=== PATIENT | male | born 1970 | race Caucasian/White ===

== ENCOUNTER 2025-01-29 13:42 | Outpatient (CLI) | payer MEDICAID, SELFPAY ==
--- NOTE | ~2025-01-29 | XR_ITS ---
EXAMINATION: XR barium swallow DATE: 01/29/2025 15:02 INDICATION: Dysphagia TECHNIQUE: The patient drank thick barium, gas-producing crystals, thin barium and a barium pill. Flu oroscopic spot radiographs of the hypopharynx and esophagus were obtained. A total of 1278 fluoroscop ic images were recorded. Fluoroscopy exposure time was 2.2 minutes. COMPARISON: 04/07/2015 FINDINGS: The pharynx is symmetric and without evidence of mass lesion or mucosal irregularity. As no fritz on the prior study the patient experienced difficulty with initiating swallowing reflex. The esop hagus is normal without mass or stricture. Esophageal motility is normal. The barium pill passed rapi dly through the esophagus into the stomach. There is no hiatal hernia. There was no gastroesophageal reflux with provocative maneuvers. IMPRESSION: 1. Persistent difficulty with initiating the swallowing reflex at the oral stage. Otherwise unremarka ble esophagram. Reviewed, dictated and finalized at location A. IMPRESSION: 1. Persistent difficulty with initiating the swallowing reflex at the oral stag e. Otherwise unremarkable esophagram.
--- OUTSIDE RECORDS SUMMARY | 2025-01-29 13:49 | XMS_ITS | CONTINUITY OF CARE DOCUMENT ---
Author Name jonelser, jonelser Address Unknown Organization [facility] Address [address] [facility] [address] [place] [address] Phone [phone] Care Team Providers Care Credit Correspondence Clerk Name Role Phone Vladimir Gutierrez MD Unavailable ALFREDO VIVEROS MD Unavailable ALFREDO VIVEROS MD Unavailable PROBLEMS Condition Status Date Provider Notes Shortness of breath active Vladimir Gutierrez MD Palpitations active Vladimir Gutierrez MD Chest pain active Vladimir Gutierrez MD Carcinoma in situ of prostate active Vladimir Gutierrez MD Anxiety disorder active Vladimir Gutierrez MD Other symptoms involving car diovascular system active Vladimir Gutierrez MD ENCOUNTERS Date Type Provider Location Encounter Diag nosis - In-person encounter Office Visit Vladimir Gutierrez MD [facility] Other symptoms involving cardiovascular systemShortness of breathAnxiety disorderCarcinoma in situ of prostatePalpitationsChest pain VITAL SIGNS Date Observation Value Provider respiratory rate E&M 20 /min Louise Horsey pulse rate 108 /min Louise Horsey oxygen saturation, oximetry 98 % Louisera Varnery blood pressure, diastolic 74 mm[Hg] Sa james Horsey blood pressure, systolic 120 mm[Hg] Rasheed Horsey Body Mass Index (Ratio) 26.14 kg/m2 Francoise ornelas Horsey height E&M 69 [in_i] Louise Laurent weight E&M 177 [lb_av] Louise Laurent ALLERGIES No Known Drug Allergies HISTORY OF MEDICATION USE No Known Medication SOCIAL HISTORY Date Observation Value Provider number of years as a smoker 30 a Vladimir Gutierrez MD social history E&M Patient vikram chan smokes every day. Smoking History: P atient currently smokes every day. P atient has been counseled to quit. Vladimir Gutierrez MD social history reviewed E&M revi ewed - no changes required Vladimir Gutierrez MD smoking/tobacco cess ation, patient education and counseling yes Vladimir Gutierrez MD smoking, date started 1984 Louise Varnerjacinto smoking history, tot al pack/day 1/ Louise Varnerjacinto cigarette use yes Louise Laurent smoking status current every day smoker U rhona Gutierrez MD FAMILY HISTORY Family Member Condition Father Family History of Nahomy ng Cancer: INSURANCE PROVIDERS Payer name Policy type / Coverage type Clifford red libertarian [employer] [facility] Medicaid 3 [id number] TREATMENT PLAN Date Name Complete Echo DLCO - 85649 FRC - 07253 FVC - 68468 HISTORY OF PROCEDURES Procedure Date Procedure Name Provider Procedure Notes S tatus FVC - 34653 Vladimir Gutierrez MD complete d FRC - 50097 Vladimir Gutierrez MD complete d DLCO - 84517 Vladimir Gutierrez MD complet ed EKG Vladimir Gutierrez MD completed
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
--- OUTSIDE RECORDS SUMMARY | 2025-01-29 13:49 | XMS_ITS | Patient Health Record ---
Author Organization [facility] Address [address] [place] [address] Care Team Providers Care Camp Advisor Name Role Phone Tarun Rodriguez Primary Care Provider Lianna Kilpatrick Unavailable Allergies No Known Allergies Results Component Value Reference Range Notes Hemoglobin A1c CLIA Waived Reviewed date:10/23/2024 10:45:25 AM Interpretation: Performing Lab: Notes/Report: Hemoglobin A1c 7.7 4.0 - 6.4 % TSH Rfx on Abnormal to Free T4 Reviewed date:12/14/2024 09:38:42 AM Interpretation: Performing Lab:[email or web address], [address] [facility], Phone - [phone], Director - [place] Notes/Report: TSH 1.150 0.450-4.500 uIU/mL CMP 14 Comprehensive Metabol ic Panel* Reviewed date:12/14/2024 09:38:28 AM Interpretation: Performing Lab:[email or web address], [address] [facility], Phone - [phone], [facility] Notes/Report: Glucose 106 70-99 mg/dL BUN 37 6-24 mg/dL Creatinine 1.72 0.76-1.27 mg/dL eGFR 46 >59 mL/min/1.73 BUN/Creatinine Ratio 22 9-20 Sodium 131 134-144 mmol/L Potassium 6.1 3.5-5.2 mmol/L Chloride 95 96-106 mmol/L Carbon Dioxide, Total 18 20-29 mmol/L Calcium 9.5 8.7-10.2 mg/dL Protein, Total 7.2 6.0-8.5 g/dL Albumin 4.1 3.8-4.9 g/dL Globulin, Total 3.1 1.5-4.5 g/dL Bilirubin, Total 0.8 0.0-1.2 mg/dL Alkaline Phosphatase 150 44-121 IU/L AST (SGOT) 50 0-40 IU/L ALT (SGPT) 65 0-44 IU/L Lipid Panel* Reviewed date:12/14/2024 09:38:14 AM Interpretation: Performing Lab:[facility] [address], Phone - [phone], Director - [facility] Notes/Report: Cholesterol, Total 127 100-199 mg/dL Triglycerides 283 0-149 mg/dL HDL Cholesterol 37 >39 mg/dL VLDL Cholesterol Ricky 44 5-40 mg/dL LDL Chol Calc (NIH) 46 0-99 mg/dL Hepatitis C Virus Antibody w /Rflx to Quantitative Real-time PCR ([id number]) Reviewed date:12/14/2024 09:37:59 AM Interpretation: Performing Lab:[facility] [address], Phone - [phone], Director - [facility] Notes/Report: HCV Ab Non Reactive Non Reactive Interpretation: Not infected with HCV unless early or acute infection is suspected (which may be delayed in an immunocompromised individual), or other evidence exists to indicate HCV infection. Hepatitis B Surface Antigen (HBsAg Screen) Reviewed date:12/14/2024 09:37:44 AM Interpretation: Performing Lab:[facility] [address], Phone - [phone], [facility] Notes/Report: HBsAg Screen Negative Negative CBC With Differential/Platel et* Reviewed date:12/14/2024 09:37:31 AM Interpretation: Performing Lab:[facility] [address] [place] [address], Phone - [phone], [facility] Notes/Report: WBC 9.5 3.4-10.8 x10E3/uL RBC 5.22 4.14-5.80 x10E6/uL Hemoglobin 16.3 13.0-17.7 g/dL Hematocrit 48.6 37.5-51.0 % MCV 93 79-97 fL MCH 31.2 26.6-33.0 pg MCHC 33.5 31.5-35.7 g/dL RDW 13.8 11.6-15.4 % Platelets 554 150-450 x10E3/uL Neutrophils 58 Not Estab. % Lymphs 32 Not Estab. % Monocytes 9 Not Estab. % Eos 0 Not Estab. % Basos 1 Not Estab. % Neutrophils (Absolute) 5.6 1.4-7.0 x10E3/uL Lymphs (Absolute) 3.1 0.7-3.1 x10E3/uL Monocytes(Absolute) 0.8 0.1-0.9 x10E3/uL Eos (Absolute) 0.0 0.0-0.4 x10E3/uL Baso (Absolute) 0.1 0.0-0.2 x10E3/uL Immature Granulocytes 0 Not Estab. % Immature Grans (Abs) 0.0 0.0-0.1 x10E3/uL HIV Screen *HIV 1, 2 Ab, p24 Ag ([id number]) Reviewed date:12/14/2024 09:37:18 AM Interpretation: Performing Lab:[facility], Phone - [phone], Director - [facility] Notes/Report: HIV Ab/p24 Ag Screen Non Reactive Non Reactive HIV-1/HIV-2 antibodies and HIV-1 p24 antigen were NOT detected. There is no laboratory evidence of HIV infection. HIV Negative Hemoglobin A1c CLIA Waived Reviewed date:12/13/2024 10:56:40 AM Interpretation: Performing Lab: Notes/Report: Hemoglobin A1c 6.7 4.0 - 6.4 % Lipid Panel* Reviewed date:02/20/2024 04:09:25 PM Interpretation: Performing Lab:[facility], Phone - [phone], [facility] - [facility] Notes/Report: Cholesterol, Total 150 100-199 mg/dL Triglycerides 105 0-149 mg/dL HDL Cholesterol 31 >39 mg/dL VLDL Cholesterol Ricky 20 5-40 mg/dL LDL Chol Calc (NIH) 99 0-99 mg/dL CMP 14 Comprehensive Metabol ic Panel* Reviewed date:02/20/2024 04:08:57 PM Interpretation: Performing Lab:[facility], Phone - [phone], [facility] Notes/Report: Glucose 123 70-99 mg/dL BUN 15 6-24 mg/dL Creatinine 1.37 0.76-1.27 mg/dL eGFR 61 >59 mL/min/1.73 BUN/Creatinine Ratio 11 9-20 Sodium 139 134-144 mmol/L Potassium 4.6 3.5-5.2 mmol/L Chloride 103 96-106 mmol/L Carbon Dioxide, Total 18 20-29 mmol/L Calcium 9.6 8.7-10.2 mg/dL Protein, Total 7.2 6.0-8.5 g/dL Albumin 4.4 3.8-4.9 g/dL Globulin, Total 2.8 1.5-4.5 g/dL A/G Ratio 1.6 Bilirubin, Total 0.3 0.0-1.2 mg/dL Alkaline Phosphatase 128 44-121 IU/L AST (SGOT) 33 0-40 IU/L ALT (SGPT) 40 0-44 IU/L Hemoglobin A1c* Reviewed date:02/20/2024 04:09:14 PM Interpretation: Performing Lab:[facility] [place], [address] [facility], Phone - [phone], Director [facility] Notes/Report: Hemoglobin A1c 6.7 4.8-5.6 % . Prediabetes: 5.7 - 6.4 Diabetes: >6.4 Glycemic control for adults with diabetes: <7.0 Renal Panel (10) Reviewed date:01/14/2025 09:29:25 AM Interpretation: Performing Lab:[facility] [place], [address] [facility], Phone - [phone], Director - [facility] Notes/Report: Glucose 126 70-99 mg/dL BUN 6 6-24 mg/dL Creatinine 1.20 0.76-1.27 mg/dL eGFR 71 >59 mL/min/1.73 BUN/Creatinine Ratio 5 9-20 Sodium 131 134-144 mmol/L Potassium 4.4 3.5-5.2 mmol/L Chloride 95 96-106 mmol/L Carbon Dioxide, Total 18 20-29 mmol/L Calcium 9.8 8.7-10.2 mg/dL Phosphorus 2.2 2.8-4.1 mg/dL Albumin 4.5 3.8-4.9 g/dL Please note The date and/or time of collection was not indicated on the requisition as required by state and federal law. The date of receipt of the specimen was used as the collection date if not supplied. Hemoglobin A1c CLIA Waived Reviewed date:06/05/2024 12:16:37 PM Interpretation: Performing Lab: Notes/Report: Hemoglobin A1c 6.9 4.0 - 6.4 % Reason For Referral Reason home sleep study wit h reflex to PSG, [place] score 14 Diagnosis 1 BARI (obstructive sle ep apnea) (G47.33) Referral Organization [facility] Referring Provider First Name Tarun Referring Provider Last Name Jennifer Referring Provider Speciality Internal edicine Referred Provider Specialty Sleep Medici ne General Notes DAVID Gloria Valeri e A 12/19/2024 10:46:48 AM > Referral to [facility] Sleep Disorder center. Letter to patient., DAVID Gloria Valerie A 12/19/2024 10:49:28 AM > PA Submitted Clinical Notes [facility] Sleep Disorder Center, [address] [place] [address], [place] [address], , Referral Priority Routine Reason EGD FOR DYSPHAGIA Diagnosis 1 Dysphagia (R13.10) Referral Organization [facility] Referring Provider First Name Tarun Referring Provider Last Name Jennifer Referring Provider [facility] Referred Provider Specialty Gastroentero logy General Notes Laine Gloria RN 01/24/2025 07:33:56 AM > Referral to Dr. Milton [place]. Letter to patient and notified by phone. Clinical Notes Dr. Milton, [address], [address] , [place] [address], , Referral Priority Urgent Reason MODIFIED BARIUM SWAL LOW, GLOBUS SENSATION Diagnosis 1 Dysphagia (R13.10) Referral Organization [facility] Referring Provider First Name Tarun Referring Provider Last Name Jennifer [facility] Referred Provider Specialty Speech and l anguage therapist General Notes Laine Gloria RN 01/24/2025 07:39:20 AM >Referral to [facility] Speech and Language Therapy. Letter to patient. Clinical Notes [facility] Speech Therapy, [address], [facility] [address], , Referral Priority Routine Medications Medication SIG (Take, Route, Frequency, Duration) Notes Start Date End Date Status Aspirin Low Dose 81 MG TAKE 1 TABLET BY MOUTH ONCE DAILY for 30 Active metFORMIN HCl 500 MG 1 tablet with a savannah l Orally Once a day Active GoodSense Nicotine 4 MG 1 piece chew for 30 minutes as needed for smoking cessation up to 16 pieces per day Mouth/Throat every hour 12/07/2024 Active busPIRone HCl 10 MG 1 tablet Orally Twic e a day for 14 days 12/13/2024 Active amLODIPine Besylate 10 MG 1 tablet Orall y Once a day Active diazePAM 2 MG 1 tablet as needed Orally Once a day for 14 days 01/23/2025 Active Atorvastatin Calcium 40 MG TAKE 1 TABLET BY MOUTH EVERY DAY for 30 days Active Metoprolol Succinate ER 25 MG 1 tablet Orally Once a day for 30 days Active Valsartan 320 MG 1 tablet Orally Once a day for 30 day(s) 01/23/2025 Active Fluticasone Propionate 50 MCG/ACT 2 SPRAYS DAILY EACH NOSTRIL Nasally at night for 30 days 01/23/2025 Active Albuterol Sulfate HFA 108 (90 Base) MCG/ACT 2 puffs Inhalation every 4 hrs for 30 days As needed shortness of breath 12/07/2024 Active Triamcinolone Acetonide 0.1 % 1 application Externally at night Active Umeclidinium-Vilanterol 62.5-25 MCG/ACT 1 puff Inhalation Once a day for 30 days 01/10/2025 Active Debrox 6.5 % 5 drops into affecte d ear Otic Twice a day Not-Taking metroNIDAZOLE 0.75 % 1 application Externally at night Active Social History Tobacco Use: Social History Observation Description Date Details (start date - stop date) Current Smoker NA - NA Sex Assigned At : Social History Observation Description Sex Assigned At Male Tobacco Control (Standard) Question Answer Notes Tobacco use: Current smoker Additional Findings: Tobacco user Moderate cigar ette smoker (10-19 cigs/day) Section Notes: Patient has reduced cigarett e smoking. Patient has reduced cigarett e smoking. Patient has reduced cigarett e smoking. Patient has reduced cigarett e smoking. Patient has reduced cigarett e smoking. Patient has reduced cigarett e smoking. Patient has reduced cigarett e smoking. Patient has reduced cigarett e smoking. Patient has reduced cigarett e smoking. Patient has reduced cigarett e smoking. Patient has reduced cigarett e smoking. Patient has reduced cigarett e smoking. Patient has reduced cigarett e smoking. Patient has reduced cigarett e smoking. Patient has reduced cigarett e smoking. Patient has reduced cigarett e smoking. Patient has reduced cigarett e smoking. Patient has reduced cigarett e smoking. Patient has reduced cigarett e smoking. Patient has reduced cigarett e smoking. Problems Problem Type SNOMED Code ICD Code Onset Dates Problem Status W/U Status Risk Notes Problem Tobacco user (039062622) Nicotine dependence, unspecified, uncomplicated (F17.200) Active confirmed Problem Generalized anxiety disorder (29057319) Generalized anxiety disorder (F41.1) Active confirmed Problem Hypertension (17874433) Hypertension (I10) 05/07/20 22 Active confirmed Problem Hyperlipidemia (38605626) Hyperlipidemia (E78.5) Active confirmed Problem COPD - Chronic obstructive pulmonary disease (92760116) COPD (chronic obstructive pulmonary disease) (J44.9) Active confirmed Problem Coronary artery disease (37442607) CAD (coronary artery disease) (I25.10) Active confirmed Problem Dysphagia (77118227) Dysphagia (R13.10) Active confirmed Problem Acute exacerbation of chronic obstructive airways disease (934272658) COPD exacerbation (J44.1) Active confirmed Problem Rosacea (014556843) Rosacea (L71.9) Active confirmed Problem Diabetes mellitus (22675732) Diabetes mellitus (E11.9) 06/07/20 23 Active confirmed Problem Tinnitus (68703425) Tinnitus (H93.19) Active confirmed Problem Obstructive sleep apnea syndrome (95875483) BARI (obstructive sleep apnea) (G47.33) Active confirmed Problem Liver enzymes abnormal (137667958) Abnormal liver enzymes (R74.8) 06/20/20 23 Active confirmed Problem Globus sensation (642345071) Globus sensation (F45.8) Active confirmed Problem Hypertensive crisis (984296814) Hypertensive crisis (I16.9) Active confirmed Problem Obesity (224230011) Obesity, unspecified classification, unspecified obesity type, unspecified whether serious comorbidity present (E66.9) Active confirmed Problem Pulmonary hypertension (01250479) Pulmonary hypertension (I27.20) Active confirmed Problem Chronic kidney disease stage 3A (631078848) Stage 3a chronic kidney disease (N18.31) Active confirmed Problem Peripheral arterial disease (077524592) Peripheral arterial disease (I73.9) Active confirmed Vital Signs Heart Rate 105 /min 01/23/2025 Respiratory Rate 16 /min 01/23/2025 Blood pressure diastolic 72 mm Hg 01/23/2025 Oximetry 94 % 01/23/2025 Height 68 in 01/23/2025 Blood pressure systolic 112 mm Hg 01/23/2025 Weight 207.8 lbs 01/23/2025 BMI 31.59 kg/m2 01/23/2025 Encounters Encounter Location Date Provider Diagnosis [address] [address] 01/10/2025 Tarun Rodriguez Hyperkalemia E87.5 and Stage 3a chronic kidney disease N18.[address] [address] 02/14/2024 Tarun Rodriguez Hypertension I10 ; Diabetes mellitus E11.9 ; Hyperlipidemia E78.5 ; Nicotine dependence, unspecified, uncomplicated F17.200 and Obesity, unspecified classification, unspecified obesity type, unspecified whether serious comorbidity present E66.[address] [address] 06/05/2024 Tarun Rodriguez Hypertension I10 ; Diabetes mellitus E11.9 ; Hyperlipidemia E78.5 ; Nicotine dependence, unspecified, uncomplicated F17.200 ; Stage 3a chronic kidney disease N18.31 and Exposure to potential infection Z20.[address] [address] 10/23/2024 Tarun Rodriguez Diabetes mellitus E11.9 ; Hypertension I10 ; Hyperlipidemia E78.5 and Exposure to potential infection Z20.9 [facility] [address] [place] [address] 12/07/2024 Tarun Rodriguez COPD exacerbation J44.1 and Hypertension I10 [address] [address] 12/13/2024 Tarun Rodriguez Diabetes mellitus E11.9 ; Screening for lung cancer Z12.2 ; Fatigue R53.83 ; Hypertension I10 ; Nicotine dependence, unspecified, uncomplicated F17.200 ; Generalized anxiety disorder F41.1 ; BARI (obstructive sleep apnea) G47.33 ; Hyperlipidemia E78.5 ; Stage 3a chronic kidney disease N18.31 ; LOPEZ (dyspnea on exertion) R06.00 and Exposure to potential infection Z20.9 [facility] [address] [address] 12/13/2024 Lianna Kilpatrick [address] [address] 12/13/2024 Tarun Rodriguez Fatigue R53.83 ; Exposure to potential infection Z20.9 ; Hyperlipidemia E78.5 and Hypertension I10 [address] [address] 01/10/2025 Tarun Rodriguez Hyperkalemia E87.5 ; Stage 3a chronic kidney disease N18.31 ; LOPEZ (dyspnea on exertion) R06.00 ; CAD (coronary artery disease) I25.10 ; Pulmonary hypertension I27.20 ; Nicotine dependence, unspecified, uncomplicated F17.200 ; Generalized anxiety disorder F41.1 ; Chest pain R07.9 and COPD (chronic obstructive pulmonary disease) J44.[address] [address] 01/23/2025 Tarun Rodriguez Globus sensation F45.8 ; Postnasal drip R09.82 ; COPD (chronic obstructive pulmonary disease) J44.9 ; Generalized anxiety disorder F41.1 ; Hyponatremia E87.1 ; Hypertension I10 ; CAD (coronary artery disease) I25.10 and Dysphagia R13.[address] [address] 01/23/2025 Lianna Kilpatrick [facility] [address], [place] [address] 05/31/2024 Tarun Rodriguez Hypertension I10 [address] [address] 12/06/2024 Tarun Rodriguez [address] [address] 12/14/2024 Tarun Rodriguez [address] [address] 01/11/2025 Tarun Rodriguez [address] [address] 01/17/2025 Tarun Rodriguez [address] [address] 01/23/2025 Tarun Rodriguez Generalized anxiety disorder F41.1 and COPD exacerbation J44.[address] [address] 01/17/2025 Tarun Rodriguez Assessments Encounter Date Diagnosis (ICD Code) Assessment Notes Treatment Notes Treatment Clinical Notes Section Notes 12/07/2024 COPD exacerbation (ICD-10 - J44.1) CARDIAC OR THROMBOEMBOLIC OR HEMATOLOGIC OR NEUROLOGIC OR PSYCHOLOGICAL ETIOLOGIES LESS LIKELY 01/23/2025 Globus sensation (ICD-10 - F45.8) LIKELY RELATED TO HIS ANXIETY 01/23/2025 Generalized anxiety disorder (ICD-10 - F41.1) 01/10/2025 Hyperkalemia (ICD-10 - E87.5) 01/10/2025 Stage 3a chronic kidney disease (ICD-10 - N18.31) 01/10/2025 Hyperkalemia (ICD-10 - E87.5) 01/23/2025 Postnasal drip (ICD-10 - R09.82) 12/13/2024 Diabetes mellitus (ICD-10 - E11.9) 12/07/2024 Hypertension (ICD-10 - I10) CONTROLLED 12/13/2024 Screening for lung cancer (ICD-10 - Z12.2) 12/13/2024 Fatigue (ICD-10 - R53.83) 02/14/2024 Hypertension (ICD-10 - I10) 02/14/2024 Diabetes mellitus (ICD-10 - E11.9) DISCUSSED INCREASING FISH IN DIET, USING WRAPS INSTEAD OF BREADS, INCREASING ACTIVITY INCLUDING BODY WEIGHT EXERCISES. 05/31/2024 Hypertension (ICD-10 - I10) 06/05/2024 Hypertension (ICD-10 - I10) 06/05/2024 Diabetes mellitus (ICD-10 - E11.9) 10/23/2024 Hypertension (ICD-10 - I10) 10/23/2024 Diabetes mellitus (ICD-10 - E11.9) 10/23/2024 Hyperlipidemia (ICD-10 - E78.5) 06/05/2024 Hyperlipidemia (ICD-10 - E78.5) 02/14/2024 Hyperlipidemia (ICD-10 - E78.5) 12/13/2024 Exposure to potential infection (ICD-10 - Z20.9) 12/13/2024 Fatigue (ICD-10 - R53.83) 01/10/2025 Stage 3a chronic kidney disease (ICD-10 - N18.31) 01/23/2025 COPD (chronic obstructive pulmonary disease) (ICD-10 - J44.9) 01/10/2025 LOPEZ (dyspnea on exertion) (ICD-10 - R06.00) 01/23/2025 COPD exacerbation (ICD-10 - J44.1) 01/10/2025 CAD (coronary artery disease) (ICD-10 - I25.10) 01/23/2025 Generalized anxiety disorder (ICD-10 - F41.1) 12/13/2024 Hyperlipidemia (ICD-10 - E78.5) 12/13/2024 Hypertension (ICD-10 - I10) 06/05/2024 Nicotine dependence, unspecified, uncomplicated (ICD-10 - F17.200) 10/23/2024 Exposure to potential infection (ICD-10 - Z20.9) 06/05/2024 Stage 3a chronic kidney disease (ICD-10 - N18.31) 02/14/2024 Nicotine dependence, unspecified, uncomplicated (ICD-10 - F17.200) 12/13/2024 Nicotine dependence, unspecified, uncomplicated (ICD-10 - F17.200) 12/13/2024 Hypertension (ICD-10 - I10) 01/10/2025 Pulmonary hypertension (ICD-10 - I27.20) 01/23/2025 Hyponatremia (ICD-10 - E87.1) stop hctz and check labs in one week. 01/23/2025 Hypertension (ICD-10 - I10) 01/10/2025 Nicotine dependence, unspecified, uncomplicated (ICD-10 - F17.200) 12/13/2024 Generalized anxiety disorder (ICD-10 - F41.1) 02/14/2024 Obesity, unspecified classification, unspecified obesity type, unspecified whether serious comorbidity present (ICD-10 - E66.9) 06/05/2024 Exposure to potential infection (ICD-10 - Z20.9) 12/13/2024 BARI (obstructive sleep apnea) (ICD-10 - G47.33) 01/10/2025 Generalized anxiety disorder (ICD-10 - F41.1) 01/23/2025 CAD (coronary artery disease) (ICD-10 - I25.10) STRESS TEST 01/2025 WITH TWO OLD AL (INF, ANT), NO ISCHEMIA, LVEF 68%. 01/23/2025 Dysphagia (ICD-10 - R13.10) 01/10/2025 Chest pain (ICD-10 - R07.9) 12/13/2024 Hyperlipidemia (ICD-10 - E78.5) 12/13/2024 Stage 3a chronic kidney disease (ICD-10 - N18.31) 01/10/2025 COPD (chronic obstructive pulmonary disease) (ICD-10 - J44.9) 12/13/2024 LOPEZ (dyspnea on exertion) (ICD-10 - R06.00) 12/13/2024 Exposure to potential infection (ICD-10 - Z20.9) 12/07/2024 Other Learning About the Safe Use of Antibiotics material was discussed. Pt was educated on use of antibiotic medication including dosing, side effects, adverse effects and anticipated response. Pt was also educated on importance of completing full course of treatment as ordered. Patient voiced understanding of all. 12/13/2024 Other Nail Setter met with Giovanni Zavala to assist in working on building skills to help the consumer gain confidence in their independent living skills. The securities underwriter practiced with Giovanni Zavala implementing problem solving skills including breathing exercised, medication compliance, and taking walks to help facilitate exploration of options decreasing stress. The securities underwriter encouraged and engaged in critical thinking of how to use natural resources and coping skills to help manage symptoms in the moment. Nail Setter also worked on modeling and practicing with the consumer healthy coping skills to reduce stress and anxiety. Plan Of Treatment Future Test Test Name Order Date Chest X-ray PA and lateral 12/07/2024 PFTS with DLCO 12/13/[address]: Lung Cancer Screening 12/13 Echo doppler exam 01/10/2025 Lexiscan Stress Nuclear Test 01/10/2025 Barium Swallow 01/23/2025 Next Appt Details Provider Name:Tarun Rodriguez , 01/30/2025 01:00:00 PM, [address], [place], [address], Insurance Providers Payer Name Payer Address Payer Phone Subscriber Number Group Number Insured Name Patient Relationship to Insured Coverage Start Date Coverage End Date MEDICAID [address] [place] [phone] [id number] Giovanni Zavala Self - patient is the insured 5 Medical (General) History Medical History History ICD Code Prostate Cancer Surgical History Surgery Date(Month/Year) Valve replacement 1970 [place] in left leg 2013 Prostate removed-cancer 2020 Hospitalization History Reason Date(Month/Year) See surgeries
== END 2025-01-29 13:43 | disposition home or self-care (01) ==
PROVIDERS: PCP Family Medicine; Visit Provider Internal Medicine
DX: R13.10 Dysphagia, unspecified (principal)
CPT/HCPCS: 74220

== ENCOUNTER 2025-03-11 12:18 | Emergency (ER) | payer OTHER, SELFPAY ==
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
--- NOTE | 2025-03-11 12:20 | PC.NURSE ---
To intake desk stating I can't swallow. Pt pink and talking in complete sentences. Pt advised that he will be assessed in triage. Pt ambulatory to seat in lobby.
--- OUTSIDE RECORDS SUMMARY | 2025-03-11 12:21 | XMS_ITS | Clinical Summary ---
Author Organization [facility] Address [address] [place] [address] Care Team Providers Care Leadership Coach Name Role Phone Amol Rich MD Primary Care Provider [phone] Source Comments [facility],non-owned Affiliates and Associated Physician Practices is amultiple site organization consisting of ambulatory clinics and hospital sitesin [place], [place], [place] and [place]. This disclosure is being madepursuant to the Care Everywhere program and may not contain all information available regarding this patient. 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
--- OUTSIDE RECORDS SUMMARY | 2025-03-11 12:21 | XMS_ITS ---
Author Organization [facility] Address [address] [place] [address] Care Team Providers Care Kerrick Kleaner Operator Name Role Phone Tarun Rodriguez Primary Care Provider REASON FOR VISIT Hosp FU/ Social History Sex Assigned At : Social History Observation Description Sex Assigned At Male Encounters Encounter Location Date Provider Diagnosis [address] [place] [address] 02/25/2025 Tarun Rodriguez Plan Of Treatment No Information Progress Notes * Neha ZAVALAOB:1970 (54 yo M)Acc No.[id number]:02/25/2025 UNLOCKED PROGRESS NOTE Progress Notes Patient: Giovanni QUINTERO Provider: Luis Rodriguez :1970 A ge:54 Y S ex:Male Date:02/25/2025 Address:[address] [place], [place] [id number] Subjective: * Chief Complaints: * 1 . Hosp FU/. * Medical History: Objective: * Vitals: Assessment: Plan: * Treatment: * * Electronic signature of Madhuri Rodriguez , [id number] on 03/11/2025 at 12:21 PM CDT Sign off status: Pending * Provider: Luis Rodriguez Date: 02/25/2025 Generated for Kimberly long/David/eTransmitting on: 0 03/11/2025 12:21 PM CDT
--- OUTSIDE RECORDS SUMMARY | 2025-03-11 12:21 | XMS_ITS | Referral Summary ---
Author Organization [facility] Address [address] [place] [address] Care Team Providers Care Geriatric Psychiatrist Name Role Phone Tarun Rodriguez MD Primary Care Provider [phone] Encounters Date Type Department Care Team Description 02/07/2025 11:15 AM CDT - 02/07/2025 11:59 PM CDT Hospital Encounter [facility] [address] [place] [id number] Rad, Amh Fluoro Dysphagia, unspecified type Discharge Disposition: Discharge to home or self care 02/07/2025 11:30 AM CDT Therapy [facility] Speech Therapy [address] [place] [id number] 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, 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 Dysphagia, unspecified type (Primary Dx) from Last 3 Months Allergies Active Allergy Reactions Criticality Noted Date Comments Iodinated Contrast Media Medications No known medications Active Problems No known active problems Social History Tobacco Use Types Packs/Day Years Used Date Smoking Tobacco: Never Assessed Sex and Gender Information Value Date Recorded Sex Assigned at Not on file 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 Gender Identity Not on file Sexual Orientation Not on file Last Filed Vital Signs Vital Sign Reading Time Taken Comments Blood Pressure 132/84 05/17/2015 8:13 AM CDT Pulse 73 05/17/2015 8:13 AM CDT Temperature - - Respiratory Rate - - Oxygen Saturation - - Inhaled Oxygen Concentration - - Weight 79.4 kg (175 lb) 05/16/2015 12:00 PM CDT Height 175.3 cm (5' 9.02) 05/16/2015 12:00 PM C DT Body Mass Index 25.83 05/16/2015 12:00 PM CDT Plan of Treatment Not on file Procedures Procedure Name Priority Date/Time Associated Diagnosis Comments FL MODIFIED BARIUM SWALLOW W VIDEO Schedule Routine, Read Routine (OP Routine) 02/07/2025 11:34 AM CDT Dysphagia, unspecified type from Last 3 Months Results * FL Modified Barium Swallow W Video (02/07/2025 11:34 AM CDT) Anatomical Region Laterality Modality Head and Neck N/A Radio Fluoroscop y 02/07/2025 12:4 7 PM CDT Narrative 02/07/2025 12:49 PM CDT EXAM DESCRIPTION: FL MODIFIED BARIUM SWALLOW EVALUATION WITH SPEECH THERAPIST REASON FOR STUDY: R13.10 Can't swallow 2-3 months--no throat/neck surgery Smoker 1.2 min ft 13.9 mgy RADIATION DOSE: Dose: 13.90 mGy Reference Air Kerma (Ka,r) TECHNIQUE: Fluoroscopic assistance provided to Speech Pathology Department who performed the exam. The patient was brought into the fluoro room and placed upright on a modified barium swallow chair. The patient was then given multiple consistencies mixed with barium to swallow under live fluoroscopic video guidance. COMPARISON: None. FINDINGS: No penetration or aspiration. IMPRESSION: No evidence of penetration or aspiration. Please correlate with Speech Pathology report. THIS IS AN ELECTRONICALLY VERIFIED FINAL REPORT 02/07/2025 12:49 PM - Electronically signed by Lenny Latham M.D. NS: NS Report ID: [id number] Reading Location: [id number] Procedure Note Lenny Latham MD - 02/07/2025 EXAM DESCRIPTION: FL MODIFIED BARIUM SWALLOW EVALUATION WITH SPEECH THERAPIST REASON FOR STUDY: R13.10 Can't swallow 2-3 months--no throat/neck surgery Smoker 1.2 min ft 13.9mgy RADIATION DOSE: Dose: 13.90 mGy Reference Air Kerma (Ka,r) TECHNIQUE: Fluoroscopic assistance provided to Speech Pathology Departmentwho performed the exam. The patient was brought into the fluoro room and placed upright on amodified barium swallow chair. The patient was then given multiple consistenciesmixed with barium to swallow under live fluoroscopic video guidance. COMPARISON: None. FINDINGS: No penetration or aspiration. IMPRESSION: No evidence of penetration or aspiration. Please correlate with Speech Pathology report. THIS IS AN ELECTRONICALLY VERIFIED FINAL REPORT 02/07/2025 12:49 PM - Electronically signed by Lenny Latham M.D. NS: NS Report ID: [id number] Reading Location: [place] [address] Tarun Rodriguez MD IMG FLUOROSCOPY PROCEDURES Fi nal Result from Last [address] [place] [address] Care Teams Geriatric Psychiatrist Relationship Specialty Start Date End Date Tarun Rodriguez MD [address] [facility] [place] [address] PCP - General Internal Medicine 01/30/25
--- OUTSIDE RECORDS SUMMARY | 2025-03-11 12:21 | XMS_ITS ---
Author Organization [facility] Address [address] [place] [address] Care Team Providers Care Mini Shifter Name Role Phone Tarun Rodriguez Primary Care Provider Social History Sex Assigned At : Social History Observation Description Sex Assigned At Male Encounters Encounter Location Date Provider Diagnosis [address] [place] [address] 02/26/2025 Tarun Rodriguez Plan Of Treatment No Information Progress Notes * Neha ZAVALAOB:1970 (54 yo M)Acc No.[id number]:02/26/2025 UNLOCKED PROGRESS NOTE Patient: Giovanni QUINTERO :1970 A ge:54 Y S ex:Male Address:[address] [place] [address], [phone] Subjective: * Chief Complaints: * * HPI: E R/Hospital Follow-up: ER/Hopsital/Urgent Care follow-up. Notification of ER/hospital visit from: pilar burch contacted client regarding outstanding imaging and he informed of hospitalization . If instructed by nurse/provider, did the pt go to ER/UC? E R/Urgent Care follow-through . Date of ER/urgent visit or hospitalization: . 02/24 to 02/26/25. Reason for the Visit: . difficulty breathing and swallowing?. Visit Type and Location: . , Inpatient Hospitalization [facility] . Disclosure signed to obtain records: . , Yes. Records Requested Date D ate, First Attempt: 0 02/26/2025 . D ate, Second Attempt: . D ate, Third Attempt: . Records Received: D ate Records Received . Medication Changes: . , No. Signficant labs, imaging or other results: . reports being seen by Speech Therapy . New diagnoses? . , No. Provider recommended f/u: 1 week client seeing ENT tomorrow planning visit with Dr Rodriguez for after this visit for Dr Rodriguez to have results of referral . ER/Hospital F/U appointment with [facility]: [facility] f/u appointment date: . Appointment Kept? D id the patient keep the appointment with [facility]? . Nurse completing documentation [place] [facility] . [facility] [facility] . * Medical History: * Surgical History: * Hospitalization/Major Diagno stic Procedure: * Medications: Objective: * Vitals: * Physical Examination: Assessment: Plan: * Treatment: * Procedure Codes: C HS01 ER/hospitalization continuity of care * * Date: History and Physical Notes * HPI (History of Present Illness) Category Sub-Category Detail Notes Category Not es ER/Hospital Follow-up Visit Type and Location: ., Inpatient Hospitalization [facility] Disclosure signed to obtain records: ., Yes Records Requested Date Date, First Attempt:: . Date, Second Attempt:: . Date, Third Attempt: : . Records Received: Date Records Received: . Medication Changes: ., No Signficant labs, imaging or other results: .reports being seen by Speech Therapy New diagnoses? ., No Provider recommended f/u: 1 week client seeing ENT tomorrow planning visit with Dr Rodriguez for after this visit for Dr Rodriguez to have results of referral ER/Hospital F/U appointment with [facility]: [facility] f/u appointment date:: . Notification of ER/hospital visit from: nurse contacted client regarding outstanding imaging and he informed of hospitalization Reason for the Visit: .difficulty breath ing and swallowing Date of ER/urgent visit or hospitalization: .02/24 to 02/26/25 Nurse completing documentation [place] [facility] Pilar dunn: . [place] [facility] Nurses: . If instructed by nurse/filomena cruz, did the pt go to ER/UC? ER/Urgent Care follow-through: . Appointment Kept? Did the patient keep the appointment with [facility]?: .
--- OUTSIDE RECORDS SUMMARY | 2025-03-11 12:22 | XMS_ITS | Clinical Summary ---
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 Dysphagia, unspecified type (Primary Dx) 02/07/2025 11:15 AM CDT - 02/07/2025 11:59 PM CDT Hospital Encounter [facility] Imaging Center [address] [place] [address] Rad, Amh Fluoro Dysphagia, unspecified type Discharge Disposition: Discharge to home or self care from Last 3 Months Social History Tobacco Use Types Packs/Day Years Used Date Smoking Tobacco: Never Assessed Sex and Gender Information Value Date Recorded Sex Assigned at Not on file 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 Gender Identity Not on file Sexual Orientation [...] 05/16/2015 12:00 PM CDT Plan of Treatment Health Maintenance Due Date Last Done Comments Colon Cancer Screening-Colonoscopy 1970 Depression Screening 1970 Hepatitis C Screening 1970 Prostate Cancer Screening-PSA 1970 Hepatitis B Screening 1986 Regular Well Visit/Exam 18-64 1986 Zoster Vaccine (1 of 2) 2018 DTaP/Tdap/Td Vaccine (2 - Td or Tdap) 03/31/2024 03/31/2014 Influenza Vaccine (#1) 2025 Pneumococcal vaccine <65 Aged Out No longer eligible based on patient's age to complete this topic Procedures Procedure Name Priority Date/Time Associated Diagnosis [...] Lenny Latham M.D. NS: NS Report ID: [id number] Reading Location: [id number] Procedure Note Lenny Latham MD - 02/07/2025 [...] Lenny Latham M.D. NS: NS Report ID: [id number] Reading Location: [place] [address] Tarun Rodriguez MD IMG FLUOROSCOPY PROCEDURES Fi nal Result from Last 3 Months Insurance Care Teams Cupola Man Relationship Specialty Start Date End Date Tarun Rodriguez MD [address] [facility] [place] [address] PCP - General Internal Medicine 01/30/25
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
--- NOTE | 2025-03-11 12:38 | PC.NURSE ---
Pt ambulatory to intake desk and asked for an ink pen. When nurse handed pt a pen he began striking himself in the neck with the pen. Pt repeatedly states I can't swallow. Pt is pink, talking and able to swallow saliva. Pt sits down on the floor. Pt placed in wc by security.
[2025-03-11 12:39] VITALS: BP 171/82; PULSE 124; RESP 19; TEMP 36.3; O2SAT 96
--- NOTE | 2025-03-11 13:26 | ED_ITS ---
HPI - General Adult General Chief complaint: Unspecified Stated complaint: trouble swallowing x 2 weeks Time Seen by Provider: 03/11/25 13:14 History of Present Illness HPI narrative: 54-year-old male presents emergency department for evaluation for difficulty swallowing. Patient began stabbing himself in the neck call with a ballpoint pen stating that he could not swallow. Patient is handling his own secretions and patient did drink a glass of water. Patient states that he has had this workup previously and it showed no abnormality. Patient denies any suicidal ideation. Related Data Allergies Allergy/AdvReac Type Severity Reaction Status Date / Time No Known Allergies Allergy Verified 03/11/25 12:48 Review of Systems 2 Review of Systems: All systems reviewed & are unremarkable except as noted in HPI and below PMFSH Family History Family History (Updated 04/02/16 @ 23:21 by DOCTOR UNKNOWN) Mother Patient's mother is in good health Sibling Patient's sister is in good health Patient's brother is in good health Father Family history of lung cancer Family history of heart disease in male family member before age 55 Patient's father is Other Family history of cardiovascular disease Social History Social History Smoking status: Heavy tobacco smoker Alcohol intake: current Exam 2 Narrative: APPEARANCE: Well appearing, no pain, no distress, well-nourished. HEAD: normocephalic, atraumatic. EYES: PERRLA/EOMI, conjunctivae clear. NOSE: Normal no drainage EARS:TMS clear with good light reflex. THROAT: Pharynx clear, no exudate. NECK: Supple. No adenopathy, no masses. RESPIRATORY: Airway patent, respirations nonlabored. Clear to auscultation bilaterally, no rales, rhonchi, wheezing. CARDIOVASCULAR: Regular rate and rhythm without murmurs rubs or gallops. ABDOMINAL: Soft, nontender, nondistended, normal bowel sounds MUSCULOSKELETAL: Moves all extremities. Strength/ROM intact, No edema, No calf tenderness. NEURO: Alert. Cranial nerves II through XII intact. Grossly intact SKIN: Warm, dry. Normal Color Course Vital Signs Vital signs: Vital Signs Temperature 97.4 F L 03/11/25 12:39 Pulse Rate 124 H 03/11/25 12:39 Respiratory Rate 19 03/11/25 12:39 Blood Pressure 171/82 H 03/11/25 12:39 Pulse Oximetry 96 07/07/25 12:39 Oxygen Delivery Room Air 03/11/25 12:39 Temperature 97.4 F L 03/11/25 12:39 Pulse Rate 80 03/11/25 16:48 Respiratory Rate 16 03/11/25 16:48 Blood Pressure 138/76 03/11/25 16:48 Pulse Oximetry 99 03/11/25 16:48 Oxygen Delivery Room Air 03/11/25 12:39 Medical Decision Making MDM Narrative Medical decision making narrative: 54-year-old male presents to the emergency department for evaluation for painful swallowing. Patient reports he has had this issue about previously no underlying etiology was identified. Patient is swallowing in the emergency department without issue. Patient is currently afebrile with no leukocytosis hemoglobin of 17.2. Patient's INR is 1.0. Patient has no acute abnormalities on his CMP CTA neck chest showed no acute abnormalities. Patient was encouraged of close follow-up with GI. Differential Diagnosis Differential Diagnosis: Esophagitis, esophageal food obstruction, pneumonia Vital Signs Vital Signs: Vital Signs Temperature 97.4 F L 03/11/25 12:39 Pulse Rate 124 H 03/11/25 12:39 Respiratory Rate 19 03/11/25 12:39 Blood Pressure 171/82 H 03/11/25 12:39 Pulse Oximetry 96 03/11/25 12:39 Oxygen Delivery Room Air 03/11/25 12:39 Temperature 97.4 F L 03/11/25 12:39 Pulse Rate 80 03/11/25 16:48 Respiratory Rate 16 03/11/25 16:48 Blood Pressure 138/76 03/11/25 16:48 Pulse Oximetry 99 03/11/25 16:48 Oxygen Delivery Room Air 03/11/25 12:39 Lab Data Lab results reviewed: Yes I reviewed the patient's lab results. 03/11/25 14:13 03/11/25 14:12 Labs: Lab Results 03/11/25 03/11/25 Range/Units 14:12 14:13 WBC 8.9 (4.5-10.0) K/mm3 RBC 5.52 (4.6-6.20) M/mm3 Hgb 17.2 (14.0-18.0) g/dL Hct 49.9 (42.0-52.0) % MCV 90.4 (80-100) fl MCH 31.2 (26-34) pg MCHC 34.5 (32-36) g/dl RDW 14.4 (11.5-14.5) % Plt Count 288 (150-375) k/mm3 MPV 10.6 H (7.4-10.4) fl Immature Gran % (Auto) 0.2 (0-0.5) % Neut % (Auto) 70.2 (45.5-73.1) % Lymph % (Auto) 18.9 (18.3-44.2) % [place] % (Auto) 9.8 H (2.6-8.5) % Eos % (Auto) 0.3 (0-4.4) % Baso % (Auto) 0.6 (0.2-1.2) % Lymph # (Auto) 1.68 (0.9-3.2) K/mm3 [place] # (Auto) 0.9 H (0.1-0.6) K/mm3 Eos # (Auto) 0.0 (0-0.3) K/mm3 Baso # (Auto) 0.1 (0.0-0.1) K/mm3 Abs Immat Gran (auto) 0.02 (0.00-0.031) K/mm3 Absolute Neuts (auto) 6.2 (1.3-6.7) K/mm3 Absolute Nucleated RBC 0.000 (0.0-0.012) K/mm3 Nucleated RBC % 0.0 (0.0-0.2) % PT 13.4 (11.1-14.7) Seconds INR 1.0 APTT 28.7 (22.3-36.8) Seconds Sodium 136 L (137-145) mmol/L Potassium 3.5 (3.4-5.0) mmol/L Chloride 105 (98-107) mmol/L Carbon Dioxide 21 L (22-30) mmol/L Anion Gap 10 (4-12) mmol/L BUN 8 L (9-20) mg/dL Creatinine 0.94 (0.7-1.3) mg/dL Estim Creat Clear Calc 75 ml/min Estimated GFR > 60 (59 - ) Glucose 108 (65-110) mg/dL Calcium 9.6 (8.4-10.2) mg/dL Total Bilirubin 0.6 (0.2-1.3) mg/dL AST 38 (17-59) U/L ALT 48 (6-50) U/L Alkaline Phosphatase 115 (38-126) U/L Total Protein 7.7 (6.3-8.2) g/dL Albumin 4.4 (3.5-5.1) g/dL Imaging Data Radiologist's impression: Impressions Neck/Chest CT 03/11/25 15:25 IMPRESSION: 1. 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 No evident post traumatic changes, abnormal masses or obstructing lesions along the cervical or thoracic esophagus or airway. 2. Mild emphysema with enlargement of the central pulmonary arteries consistent with pulmonary arterial hypertension. 3. Small sliding-type hiatal hernia. Discharge Plan Discharge Clinical Impression: Difficulty swallowing Patient Disposition: Home Condition: Stable Instructions: Antibiotic Form, Dysphagia (ED) Additional Instructions: Have close follow-up with GI for additional outpatient testing. If you have any worsening symptoms then please call or return to the emergency department. Patient Language: Japanese Follow-up/Referrals: Tarun Rodriguez MD [Primary Care Provider] - Isac Vasquez MD [Physician] -
--- OUTSIDE RECORDS SUMMARY | 2025-03-11 14:05 | XMS_ITS | Referral Summary ---
Author Organization [facility] Address [address] [place] [address] Care Team Providers Care Application Analyst Name Role Phone Tarun Rodriguez MD Primary Care Provider [phone] Encounters Date Type Department Care Team Description 02/07/2025 11:15 AM CDT - 02/07/2025 11:59 PM CDT Hospital Encounter [facility] [address] [place] [id number] Rad, Amh Fluoro Dysphagia, unspecified type Discharge Disposition: Discharge to home or self care 02/07/2025 11:30 AM CDT Therapy [facility] [address] [place] [id number] 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, ACQUISITION MANAGER Dysphagia, unspecified type (Primary Dx) from Last 3 Months Allergies Active Allergy Reactions Criticality Noted Date Comments Iodinated Contrast Media Medications No known medications Active Problems No known active problems Social History Tobacco Use Types Packs/Day Years Used Date Smoking Tobacco: Never Assessed Sex and Gender Information Value Date Recorded Sex Assigned at Not on file 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 NS: NS Report ID: [id number] Reading Location: [id number] Procedure Note Lenny Latham MD - 02/07/2025 [...] Lenny Latham M.D. NS: NS Report ID: [id number] Reading Location: [place] [address] Tarun Rodriguez MD IMG FLUOROSCOPY PROCEDURES Fi nal Result from Last [address] [address] Care Teams Application Analyst Relationship Specialty Start Date End Date Tarun Rodriguez MD [address] [facility] [place] [address] PCP - General Internal Medicine 01/30/25
--- OUTSIDE RECORDS SUMMARY | 2025-03-11 14:05 | XMS_ITS | Clinical Summary ---
Author Organization [facility] Address [address] [place] [address] Care Team Providers Care Wood Block Artist Name Role Phone Amol Rich MD Primary Care Provider [phone] Source Comments [facility],non-owned Affiliates and Associated Physician Practices is amultiple site organization consisting of ambulatory clinics and hospital sitesin [place], [place], [place] and [place]. This disclosure is being madepursuant to the Care Everywhere program and may not contain all information available regarding this patient. 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
--- OUTSIDE RECORDS SUMMARY | 2025-03-11 14:05 | XMS_ITS | Clinical Summary ---
Author Organization [facility] Address [address] [place] [address] Care Team Providers Care Compact Assembler Name Role Phone Tarun Rodriguez MD Primary Care Provider [phone] Allergies Active Allergy Reactions Criticality Noted Date Comments Iodinated Contrast Media Medications No known medications Active Problems No known active problems Encounters Date Type Department Care Team Description 02/07/2025 11:30 AM CDT Therapy [facility] [address] [place] [phone] 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, NAVIGATION TEACHER Dysphagia, unspecified type (Primary Dx) 02/07/2025 11:15 AM CDT - 02/07/2025 11:59 PM CDT Hospital Encounter [facility] [address] [place] [phone] Rad, Amh Fluoro Dysphagia, unspecified type Discharge Disposition: Discharge to home or self care from Last 3 Months Social History Tobacco Use Types Packs/Day Years Used Date Smoking Tobacco: Never Assessed Sex and Gender Information Value Date Recorded Sex Assigned at Not on file 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 NS: NS Report ID: [id number] Reading Location: [id number] Procedure Note Lenny Latham MD - 02/07/2025 [...] Lenny Latham M.D. NS: NS Report ID: [id number] Reading Location: [place] [address] Tarun Rodriguez MD IMG FLUOROSCOPY PROCEDURES Fi nal Result from Last 3 Months Insurance Care Teams Compact Assembler Relationship Specialty Start Date End Date Tarun Rodriguez MD [address] [facility] [place] [address] PCP - General Internal Medicine 01/30/25
[2025-03-11] MEDS: LACTATED RINGERS 1,000 ML 999 ML IV CONT (14:16)
[2025-03-11 14:17] LABS: Hematocrit 49.9 % (42.0-52.0); Hemoglobin 17.2 g/dL (14.0-18.0); Immature Granulocyte Percent A 0.2 % (0-0.5); Lymphocytes Absolute Auto 1.68 K/mm3 (0.9-3.2); Mean Corpuscular HGB Conc 34.5 g/dl (32-36); Mean Corpuscular Hemoglobin 31.2 pg (26-34); Mean Corpuscular Volume 90.4 fl (80-100); Nucleated Red Blood Cells Absolute Auto 0.000 K/mm3 (0.0-0.012); Nucleated Red Blood Cells Perc 0.0 % (0.0-0.2); Platelet Count Result 288 k/mm3 (150-375); Red Blood Count 5.52 M/mm3 (4.6-6.20); White Blood Count 8.9 K/mm3 (4.5-10.0)
[2025-03-11 14:26] LABS: Alanine Aminotransferase 48 U/L (6-50); Albumin Level 4.4 g/dL (3.5-5.1); Alkaline Phosphatase 115 U/L (38-126); Anion Gap 10 mmol/L (4-12); Aspartate Amino Transferase 38 U/L (17-59); Bilirubin,Total 0.6 mg/dL (0.2-1.3); Blood Urea Nitrogen 8 mg/dL (9-20); Calcium 9.6 mg/dL (8.4-10.2); Carbon Dioxide 21 mmol/L (22-30); Chloride 105 mmol/L (98-107); Estimated CRCL calculation 75 ml/min; Estimated Glomerular Filt Rate > 60; Glucose 108 mg/dL (65-110); Potassium 3.5 mmol/L (3.4-5.0); Sodium 136 mmol/L (137-145); Total Protein 7.7 g/dL (6.3-8.2)
[2025-03-11 14:28] LABS: INR 1.0; Prothrombin Time 13.4 Seconds (11.1-14.7)
[2025-03-11 14:29] LABS: Partial Thromboplastin Time 28.7 Seconds (22.3-36.8)
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
[2025-03-11 16:48] VITALS: BP 138/76; PULSE 80; RESP 16; O2SAT 99
== END 2025-03-11 16:50 | disposition home or self-care (01) ==
PROVIDERS: Emergency Provider Emergency Medicine; PCP Internal Medicine
DX: R13.10 Dysphagia, unspecified (principal); F17.200 Nicotine dependence, unspecified, uncomplicated; K44.9 Diaphragmatic hernia without obstruction or gangrene; J43.9 Emphysema, unspecified
CPT/HCPCS: 36415; 70491; 71260; 80053; 85025; 85610; 85730; 96360; 99284; J7120; Q9967